=== PATIENT | female | born 1945 | race Caucasian/White ===

== ENCOUNTER → 2019-09-03 15:13 | Outpatient (BNVA) | payer MEDICARE, OTHER, SELFPAY | PROVIDERS: Family Provider Family Medicine; PCP Family Medicine; Visit Provider Nurse Practitioner Family | DX: R30.0 Dysuria (principal); R53.83 Other fatigue; D50.9 Iron deficiency anemia, unspecified; E03.9 Hypothyroidism, unspecified; R23.1 Pallor; E55.9 Vitamin D deficiency, unspecified; K59.00 Constipation, unspecified; M89.9 Disorder of bone, unspecified; R53.82 Chronic fatigue, unspecified; D64.9 Anemia, unspecified | CPT/HCPCS: 74018; 80053; 81000; 82306; 82728; 83550; 84439; 84443; 85025 ==

== ENCOUNTER 2019-09-19 09:44 | Outpatient (CLI) | payer MEDICARE, OTHER, SELFPAY ==
--- NOTE | 2019-09-19 10:00 | CT_ITS ---
WS: [id number] CT LUMBAR SPINE TECHNIQUE: Noncontrast CT of the lumbar spine with coronal and sagittal reformatted images. CLINICAL INFORMATION: lytic lesion COMPARISON: Radiograph September 03, 2019 DLP: 1949.[address] scans at [facility] use at least one of these dose optimization techniques: automat ed exposure control; mA and/or kV adjustment per patient size (includes targeted exams where dose is matched to clinical indication); or iterative reconstruction. FINDINGS: Lumbar scoliosis convex right. No acute compression fractures. Grade 1 anterolisthesis L4 on L5. This measures approximately 2.75 mm. Disc space narrowing worse L5-S1 with vacuum disc phenomenon. Suspected lytic lesion seen on the prior radiograph is not seen on the CT and was likely due projecti onal. No lytic lesions. Partially visualized right adrenal nodule likely adenoma. This measures appro ximately 2.1 cm but incompletely visualized. L1-L2: Mild disc bulging and osteophytic ridging. Slight effacement of ventral thecal sac. Mild centr al canal stenosis. Mild bilateral foraminal narrowing. Moderate facet arthropathy. L2-L3: Slight retrolisthesis L2 on L3. Disc osteophyte complex with moderate to severe central canal stenosis with facet arthropathy and ligament flavum hypertrophy. Impingement subarticular recess bila terally. Advanced facet arthropathy. Moderate left and mild right foraminal narrowing. L3-L4: Disc osteophyte complex with endplate ridging. Moderate facet arthropathy ligament flavum hype rtrophy. Moderate to severe central canal stenosis. Advanced facet arthropathy. Moderate left greater than right foraminal narrowing. L4-L5: Disc osteophyte complexes with endplate ridging. Advanced facet arthropathy. Ligament flavum h ypertrophy. Moderate to severe central canal stenosis. Slight anterolisthesis. Mild bilateral foramin al narrowing. L5-S1: Small disc osteophyte protrusion with osteophytic ridging. Impingement on the left S1 nerve ro ot. Mild central canal stenosis. Mild right and no significant left foraminal narrowing. Shotty retroperitoneal lymph nodes. Enlarged iliac chain and pelvic lymph nodes right greater than le ft the largest measuring 12 mm. These are nonspecific and malignancy is not excluded. Recommend CT ab domen pelvis for further evaluation. Partially visualized sigmoid diverticulosis. Prior hysterectomy. CT/CT lumbar spine wo con* [id number] IMPRESSION: 1. Partially visualized large right greater than left iliac chain and pelvic l ymph nodes the largest measuring 12 mm. These are nonspecific and recommend CT abdomen pelvis for further evaluation. Malignancy is not excluded. 2. No visualized lytic lesions in the lumbar spine corresponding to the radiog raphic findings. 3. Moderate to severe central canal stenosis L2-L3, L3-L4 and L4-L5 described above. 4. Multilevel bony foraminal narrowing described above. 5. Advanced facet arthropathy L4-5. 6. Partially visualized sigmoid diverticulosis. Some induration partially seen in the pelvic mesenteric fat. 7. Partially visualized right adrenal nodule likely adenoma described above.
== END 2019-09-19 09:45 | disposition home or self-care (01) ==
LOC: RADWPI 09:48
PROVIDERS: Family Provider Family Medicine; PCP Family Medicine; Visit Provider Nurse Practitioner Family
DX: M89.9 Disorder of bone, unspecified (principal); M48.061 Spinal stenosis, lumbar region without neurogenic claudication; M47.896 Other spondylosis, lumbar region; M51.36 Other intervertebral disc degeneration, lumbar region; K57.30 Diverticulosis of large intestine without perforation or abscess without bleeding; R59.0 Localized enlarged lymph nodes
CPT/HCPCS: 72131

== ENCOUNTER 2019-09-27 11:32 | Emergency (ER) | payer MEDICARE, OTHER, SELFPAY ==
[2019-09-27 11:50] VITALS: BP 135/72; PULSE 63; RESP 16; TEMP 36.7; O2SAT 98; BMI 27.3
--- NOTE | 2019-09-27 12:03 | CT_ITS ---
WS: [id number] CT ABDOMEN PELVIS TECHNIQUE: Contrast-enhanced CT of the abdomen and pelvis with coronal and sagittal reformatted image s. CLINICAL INFORMATION: abd pain COMPARISON: None. DLP: 1115.[address] scans at [facility] use at least one of these dose optimization techniques: automat ed exposure control; mA and/or kV adjustment per patient size (includes targeted exams where dose is matched to clinical indication); or iterative reconstruction. FINDINGS: Marked hepatomegaly with diffuse fatty infiltration. Liver measures 20 cm craniocaudal. Portal vein a nd splenic vein are patent. Normal visualized pancreas. Cholecystectomy. Normal portal vein and splen ic vein. Small bilateral pleural effusions. Cardiomegaly. Small pericardial effusion. Enhancing right adrenal nodule nonspecific measuring 2.5 CM. Left adrenal gland is normal. Normal renal parenchymal enhancement. No hydronephrosis. Small amount of perisplenic and perihepatic ascites. Fatty atrophy of the pancreas. Normal caliber abdominal aorta. Aortic calcification. Right NISREEN degrades images in the pelvis. Fluid collection partially visualized along the iliopsoas bu rsa in the right anterior thigh consistent with iliopsoas bursitis. Enhancing iliopsoas bursa measure s 6.5 x 3.2 cm Prominent lymph nodes along the right pelvic sidewall the largest measuring 14 mm. 13 mm right iliac chain lymph node. Prominent deep right inguinal lymph nodes the largest measuring 17 mm. Shotty retro peritoneal and periaortic lymph nodes. These are nonspecific but may be reactive. Malignancy not enti rely excluded. Small amount of ascites in the pelvis. Mild diffuse bladder wall thickening. Notified Renan Harmon DO at 09/27/2019 3:[address]/CT abdomen pelvis w con* [id number] IMPRESSION: 1. Marked cardiomegaly with dense diffuse fatty infiltration of the liver. Rec ommend correlation with liver function tests. 2. Mild perihepatic and perisplenic ascites with mild ascites in the pelvis an d mesenteric edema. 3. Small bilateral pleural effusions. Cardiomegaly with small pericardial effu nathalie. 4. A few slightly enlarged right iliac, right pelvic sidewall, and right deep inguinal lymph nodes. These are nonspecific and may be reactive but malignancy is not entirely excluded. Recommend interval follow-up. 5. Shotty retroperitoneal and periaortic lymph nodes. 6. 2.5 cm enhancing right adrenal nodule nonspecific may represent fat poor ad enoma. This can be further evaluated with CT adrenal protocol on an elective ba sis. 7. Right NISREEN with peripheral enhancing partially visualized iliopsoas bursitis .
--- NOTE | 2019-09-27 12:04 | ED_ITS ---
HPI - General Adult General: Chief complaint: General Medical Stated complaint: LOWER BACK PAIN Time Seen by Provider: 09/27/19 11:56 History of Present Illness: HPI narrative: Patient complains of abdominal pain, low back pain, bilateral hip pain. No known injury. She reports that she had a CAT scan of her lumbar spine earlier this week. Onset (ago): year(s) Location: back, abdomen, pelvis and lower extremity Radiation: extremity Severity: severe Pain Consistency: constant Relieving factors: none Exacerbating factors: movement Review of Systems General: Reports: 10 or more systems reviewed and unremarkable except in HPI and below Musc: Reports: back pain and extremity pain PFSH ED PFSH: Medical History CAD (coronary artery disease) Depression Enrolled in chronic care management GERD (gastroesophageal reflux disease) Hypothyroid Renal insufficiency Surgical History History of section History of cholecystectomy History of discectomy History of heart artery stent History of heart surgery History of hemorrhoidectomy History of hip replacement total R History of hysterectomy Family History Other Cancer Social History Smoking and tobacco status: never smoked Physical Exam Const: COMMON NORMALS: patient oriented x3 HENMT: COMMON NORMALS: normocephalic HEAD & SCALP: normocephalic Neck/C-Spine: COMMON NORMALS: full ROM, no lymphadenopathy, no meningeal signs and no JVD Resp: COMMON NORMALS: normal respiratory effort, No retractions, No use of accessory muscles and clear to auscultation bilaterally AUSCULTATION: clear to auscultation bilaterally Cardio: COMMON NORMALS: no JVD, regular rate and regular rhythm RATE: regular rate RHYTHM: regular rhythm GI: COMMON NORMALS: Soft to palpation INSPECTION: Yes normal to inspection AUSCULTATION: Yes normoactive bowel sounds PALPATION: Yes Soft to palpation and Yes Tenderness to palpation present (GI) Extremity: COMMON NORMALS: normal to inspection, full ROM and capillary refill normal Neuro: COMMON NORMALS: patient oriented x3, no focal motor deficits and no sensory deficits noted MENINGEAL SIGNS: Yes no meningeal signs Skin: COMMON NORMALS: no rashes or lesions noted, turgor normal, no jaundice, no petechiae and no mottling GENERAL SKIN EXAM: no rashes or lesions noted and turgor normal Course Vital Signs: Vital signs: Vital Signs Temperature 98.0 F 09/27/19 11:50 Pulse Rate 63 09/27/19 11:50 Respiratory Rate 16 09/27/19 11:50 Blood Pressure 135/72 09/27/19 11:50 Pulse Oximetry 98 09/27/19 11:50 Discharge Plan Discharge Prescriptions: No Action nystatin 100,000 unit/mL suspension 6 ml PO QID 7 Days Qty: 168 RF: 1 cetirizine 10 mg capsule 10 mg PO DAILY RF: 0 metoprolol succinate 100 mg tablet extended release 24 hr 100 mg PO DAILY RF: 0 potassium chloride [Klor-Con M20] 20 mEq tablet,ER particles/crystals 20 meq PO DAILY RF: 0 furosemide [Lasix] 40 mg tablet 40 mg PO QAM PRN (Reason: edema) RF: 0 omeprazole 20 mg capsule,delayed release(DR/EC) 20 mg PO DAILY RF: 0 calcium carbonate-vitamin D3 PO DAILY RF: 0 nitroglycerin 0.4 mg tablet, sublingual 0.4 mg SUBLINGUAL Q5M PRNRF: 0 hydralazine 25 mg tablet 25 mg PO TID RF: 0 acetaminophen [Tylenol] 325 mg tablet 325 mg PO ONCE PRNRF: 0 clopidogrel 75 mg tablet 75 mg PO DAILY RF: 0 aspirin [Adult Aspirin Regimen] 81 mg tablet,delayed release (DR/EC) 81 mg PO DAILY RF: 0 cholecalciferol (vitamin D3) PO DAILY RF: 0 ascorbate calcium (vitamin C) 500 mg tablet 500 mg PO DAILY RF: 0 ferrous sulfate 325 mg (65 mg iron) tablet 325 mg PO DAILY RF: 0 levothyroxine 25 mcg tablet 25 mcg PO DAILY RF: 0 duloxetine 60 mg capsule,delayed release(DR/EC) 60 mg PO DAILY Qty: 30 RF: 3 Coding Level of Care Code ED [employer] Juan Jose
[2019-09-27] MEDS: sodium chloride 0.9% 500 ML IV (13:01)
[2019-09-27 13:09] LABS: Basophils % 0.5 %; Eosinophils # 0.2 10^3/uL (0.0-0.8); Eosinophils % 2.9 %; Hematocrit 32.5 % (37.0-47.0); Hemoglobin 9.6 g/dL (11.5-15.3); Lymphocytes # 1.8 10^3/uL (0.8-4.8); Mean Corpuscular HGB Conc 29.5 g/dL (30.0-36.0); Mean Corpuscular Hemoglobin 28.3 pg (28.0-34.0); Mean Corpuscular Volume 95.9 fL (81-99); Mean Platelet Volume 8.8 fL (7.4-10.4); Monocytes # 0.9 10^3/uL (0.2-0.9); Monocytes % 10.9 %; Neutrophils # 5.2 10^3/uL (1.8-7.7); Neutrophils % 63.2 %; Nucleated Red Blood Cells % 0 %; Platelet Count 390 10^3/cmm (130-400); Red Blood Count 3.39 10^6/uL (4.1-5.3); Red Cell Distribution Width 21.7 % (12.1-15.1); White Blood Count 8.2 10^3/uL (4.0-10.0)
--- NOTE | 2019-09-27 13:12 | PC.NURSE ---
during pt assessment, pt states she is very anxious and would is requesting something for nerves Per pt's home meds, Dr Castro rx duloxetine 60mg po
[2019-09-27 13:18] LABS: Add Urine Microscopic? YES; Bilirubin Urine Neg (NEGATIVE); Blood Urine Neg (Negative); Glucose Urine UA Norm (Normal); Ketones Urine Negative (Negative); Leukocyte Esterase Urine Negative (Negative); Nitrate Urine Negative (Negative); Protein Urine 1+ (Negative); Urine Appearance Clear (CLEAR); Urine Color Yellow (Yellow); Urobilinogen Urine 1 mg/dL (Negative)
[2019-09-27 13:24] LABS: Alanine Aminotransferase 9 U/L (0-33); Albumin Level 3.2 g/dL (3.5-5.2); Alkaline Phosphatase 228 IU/L (35-105); Anion Gap 15.8 (5-19); Aspartate Amino Transferase 16 U/L (0-32); Blood Urea Nitrogen 17 mg/dL (8-23); Carbon Dioxide 25 mmol/L (22-29); Chloride 101 mmol/L (98-107); Globulin 4.1 g/dL (1.3-4.6); Glucose 93 mg/dL (65-115); Lipase 5 U/L (13-60); Osmolality Calculated 282 mOsm/kg (285-295); Potassium 3.8 mmol/L (3.5-5.1); Sodium 138 mmol/L (136-145); Total Bilirubin 0.7 mg/dL (0.15-1.2); Total Protein 7.3 g/dL (6.6-8.7)
[2019-09-27 13:25] LABS: Lactate (Lactic Acid level) 1.4 mmol/L (0.5-2.2)
[2019-09-27] MEDS: duloxetine 60 mg Capsule PO (13:27)
[2019-09-27 13:28] LABS: Add Urine Culture? No; Bacteria Urine 1+; Hyaline Casts Urine 0-4; WBC Urine 0-4 /hpf (0-5)
--- NOTE | 2019-09-27 14:36 | PC.NURSE ---
Luis spouse: [phone]
--- NOTE | 2019-09-27 14:38 | PC.NURSE ---
pt spouse informed of pt update. cell ph# obtained
[2019-09-27] MEDS: iodixanol 320 mg/mL 100mL Btl IV (15:00)
[2019-09-27 17:14] VITALS: BP 177/102; PULSE 96; RESP 20; O2SAT 97
== END 2019-09-27 17:49 | disposition home or self-care (01) ==
PROVIDERS: Emergency Provider Family Medicine; Family Provider Family Medicine; PCP Family Medicine
DX: M54.5 Low back pain (principal); Z79.02 Long term (current) use of antithrombotics/antiplatelets; Z79.82 Long term (current) use of aspirin; I25.10 Atherosclerotic heart disease of native coronary artery without angina pectoris; K21.9 Gastro-esophageal reflux disease without esophagitis; Z96.641 Presence of right artificial hip joint
CPT/HCPCS: 12345; 74177; 80053; 81001; 83605; 83690; 85025; 96360; 99282; 99283; A9270; J7040; Q9967

== ENCOUNTER 2019-10-24 | Outpatient (CLI) | payer MEDICARE, OTHER, SELFPAY | END 2019-10-24 23:00 | disposition home or self-care (01) | LOC: RADWPI 01-06 10:36 | PROVIDERS: PCP Family Medicine; Visit Provider Licensed Practical Nurse | DX: M51.17 Intervertebral disc disorders with radiculopathy, lumbosacral region (principal) | CPT/HCPCS: A9579 ==

== ENCOUNTER 2019-11-06 06:00 | Outpatient (RCR) | payer MEDICARE, OTHER, SELFPAY | END 2019-12-06 23:59 | disposition home or self-care (01) | LOC: GPT 06:00 | PROVIDERS: PCP Family Medicine; Referring Provider Nurse Practitioner Family; Visit Provider Nurse Practitioner Family | DX: M62.81 Muscle weakness (generalized) (principal) | CPT/HCPCS: 97110; 97112; 97116; 97161; 97530 ==

== ENCOUNTER 2019-12-07 06:00 | Outpatient (RCR) | payer MEDICARE, OTHER, SELFPAY | END 2020-01-06 23:59 | disposition home or self-care (01) | LOC: GPT 06:00 | PROVIDERS: PCP Family Medicine; Referring Provider Nurse Practitioner Family; Visit Provider Nurse Practitioner Family | DX: M62.81 Muscle weakness (generalized) (principal) | CPT/HCPCS: 97110; 97112; 97116; 97164; 97530 ==

== ENCOUNTER 2019-12-10 14:43 | Outpatient (CLI) | payer MEDICARE, OTHER, SELFPAY ==
--- NOTE | 2019-12-10 14:52 | XR_ITS ---
WS: [id number] FEMUR RIGHT TECHNIQUE: 2 views of the right femur CLINICAL INFORMATION: Mass COMPARISON: None. FINDINGS: Postoperative changes right NISREEN. No evidence of hardware loosening. Osteopenia. XR/XR femur RT min 2V* [id number] IMPRESSION: Postoperative changes right NISREEN. No evidence of hardware loosening.
== END 2019-12-10 14:44 | disposition home or self-care (01) ==
LOC: RADWPI 14:49
PROVIDERS: Family Provider Family Medicine; PCP Family Medicine; Visit Provider Licensed Practical Nurse
DX: R22.41 Localized swelling, mass and lump, right lower limb (principal); Z96.641 Presence of right artificial hip joint
CPT/HCPCS: 73552

== ENCOUNTER → 2019-12-12 13:22 | Outpatient (BNVA) | payer MEDICARE, OTHER, SELFPAY | PROVIDERS: Family Provider Family Medicine; PCP Family Medicine; Visit Provider Licensed Practical Nurse | DX: N28.9 Disorder of kidney and ureter, unspecified (principal) | CPT/HCPCS: 80053 ==

== ENCOUNTER → 2019-12-19 11:01 | Outpatient (BNVA) | payer MEDICARE, OTHER, SELFPAY | PROVIDERS: PCP Family Medicine; Visit Provider Licensed Practical Nurse | DX: M48.062 Spinal stenosis, lumbar region with neurogenic claudication (principal); D50.9 Iron deficiency anemia, unspecified; M51.17 Intervertebral disc disorders with radiculopathy, lumbosacral region; R22.41 Localized swelling, mass and lump, right lower limb; G60.8 Other hereditary and idiopathic neuropathies | CPT/HCPCS: 99214 ==

== ENCOUNTER 2020-01-07 06:00 | Outpatient (RCR) | payer MEDICARE, OTHER, SELFPAY | END 2020-02-05 23:59 | disposition home or self-care (01) | LOC: GPT 06:00 | PROVIDERS: PCP Family Medicine; Referring Provider Nurse Practitioner Family; Visit Provider Nurse Practitioner Family | DX: M62.81 Muscle weakness (generalized) (principal) | CPT/HCPCS: 97110; 97112; 97116; 97164; 97530 ==

== ENCOUNTER 2020-01-07 07:52 | Outpatient (CLI) | payer MEDICARE, OTHER, SELFPAY ==
--- NOTE | 2020-01-07 07:15 | US_ITS ---
WS: [id number] ULTRASOUND SOFT TISSUES RIGHT thigh. HISTORY: Painful right thigh mass COMPARISON: CT 09/27/2019 TECHNIQUE: 2-D and color Doppler imaging is submitted. There is a large complex nonvascular fluid collection in the proximal RIGHT thigh at the area of pain . Thick wall collection with mobile debris and low-level echoes centrally. Collection has been presen t for multiple years. The collection measures 7.1 x 5.3 x 6.0 cm. No increased vascularity. US/US soft tissue/extremity [id number] IMPRESSION: Large thick-walled complex fluid collection without vascularity corresponds to the area of pain and palpable mass proximal RIGHT thigh. Prior CT from 0 demonstrated a complex fluid collection around the hip. There are multiple bu rsal fluid collections at the hip and this is probably bursal fluid distention which is chronic and could potentially be increasing in size. Less likely mariluz desirae due to its long-standing presence.
== END 2020-01-07 07:53 | disposition home or self-care (01) ==
LOC: RAD 07:57
PROVIDERS: PCP Family Medicine; Visit Provider Licensed Practical Nurse
DX: R22.41 Localized swelling, mass and lump, right lower limb (principal)
CPT/HCPCS: 76882

== ENCOUNTER → 2020-01-16 13:44 | Outpatient (BNVA) | payer MEDICARE, OTHER, SELFPAY | PROVIDERS: PCP Family Medicine; Visit Provider Licensed Practical Nurse | DX: M48.062 Spinal stenosis, lumbar region with neurogenic claudication (principal); M51.17 Intervertebral disc disorders with radiculopathy, lumbosacral region; R22.41 Localized swelling, mass and lump, right lower limb; G60.8 Other hereditary and idiopathic neuropathies; D50.9 Iron deficiency anemia, unspecified | CPT/HCPCS: 99214 ==

== ENCOUNTER 2020-02-06 06:00 | Outpatient (RCR) | payer MEDICARE, OTHER, SELFPAY | END 2020-03-07 23:59 | disposition home or self-care (01) | LOC: GPT 06:00 | PROVIDERS: PCP Family Medicine; Referring Provider Nurse Practitioner Family; Visit Provider Nurse Practitioner Family | DX: M62.81 Muscle weakness (generalized) (principal); D50.9 Iron deficiency anemia, unspecified | CPT/HCPCS: 83550; 85025; 97110; 97116; 97530 ==

== ENCOUNTER → 2020-02-06 13:31 | Outpatient (BNVA) | payer MEDICARE, OTHER, SELFPAY | PROVIDERS: PCP Family Medicine; Visit Provider Licensed Practical Nurse | DX: D50.9 Iron deficiency anemia, unspecified (principal) | CPT/HCPCS: 83550; 85025 ==

== ENCOUNTER → 2020-02-18 10:58 | Outpatient (BNVA) | payer MEDICARE, OTHER, SELFPAY | PROVIDERS: PCP Family Medicine; Visit Provider Nurse Practitioner Family | DX: J02.9 Acute pharyngitis, unspecified (principal) | CPT/HCPCS: 87071; 87880 ==

== ENCOUNTER 2020-02-22 18:54 | Inpatient (IN) | payer MEDICARE, OTHER, SELFPAY ==
[2020-02-22] VITALS (17 sets, daily range): BP systolic 96–150; BP diastolic 61–78; PULSE 64–78; RESP 16–27; TEMP 36.7; O2SAT 73–100; BMI 26.6
--- NOTE | 2020-02-22 19:28 | XRR_ITS ---
PROCEDURE INFORMATION: Exam: XR Chest, 1 View Exam date and time: 02/22/2020 7:30 PM Age: 74 years old Clinical indication: Patient HX: C/O cough, weakness n/v/d TECHNIQUE: Imaging protocol: XR of the chest Views: 1 view. COMPARISON: No relevant prior studies available. FINDINGS: Lungs: Subtle patchy ground-glass interstitial lung disease right upper lobe which could reflect right upper lobe pneumonitis. Pleural space: Unremarkable. No pleural effusion. No pneumothorax. Heart/Mediastinum: Marked cardiomegaly. Bones/joints: High riding right shoulder with advanced primary osteoarthritis. Other findings: Heavy body habitus. XR/XR chest 1V portable [id number] IMPRESSION: 1. Subtle patchy ground-glass interstitial lung disease right upper lobe which could reflect right upper lobe pneumonitis. 2. Marked cardiomegaly.
[2020-02-22 19:47] LABS: Basophils % 0.7 %; Eosinophils # 0.1 10^3/uL (0.0-0.8); Eosinophils % 1.5 %; Hematocrit 37.8 % (37.0-47.0); Hemoglobin 11.5 g/dL (11.5-15.3); Lymphocytes # 1.6 10^3/uL (0.8-4.8); Lymphocytes % 26.7 %; Mean Corpuscular HGB Conc 30.4 g/dL (30.0-36.0); Mean Corpuscular Hemoglobin 28.2 pg (28.0-34.0); Mean Corpuscular Volume 92.6 fL (81-99); Mean Platelet Volume 10.5 fL (7.4-10.4); Monocytes # 0.2 10^3/uL (0.2-0.9); Monocytes % 3.9 %; Neutrophils # 3.99 10^3/uL (1.8-7.7); Neutrophils % 66.9 %; Nucleated Red Blood Cells % 0.3 %; Platelet Count 112 10^3/cmm (130-400); Red Blood Count 4.08 10^6/uL (4.1-5.3); Red Cell Distribution Width 19.4 % (12.1-15.1)
[2020-02-22] MEDS: sodium chloride 0.9% 1,000 ML 999 ML IV (19:51)
[2020-02-22 20:08] LABS: Lactate (Lactic Acid level) 1.7 mmol/L (0.5-2.2)
[2020-02-22 20:13] LABS: Add Urine Microscopic? YES; Bilirubin Urine 1+ (Negative); Blood Urine Neg (Negative); Glucose Urine UA Norm (Normal); Ketones Urine 1+ (Negative); Leukocyte Esterase Urine 2+ (Negative); Nitrate Urine Negative (Negative); Protein Urine 1+ (Negative); Specific Gravity, Urine 1.015 (1.005-1.030); Urine Appearance Clear (CLEAR); Urine Color Yellow (Yellow); Urobilinogen Urine 8 mg/dL (Negative); pH Urine 5 (5-7)
[2020-02-22 20:18] LABS: Procalcitonin 0.51 ng/mL (0-0.5)
[2020-02-22 20:29] LABS: Alanine Aminotransferase 9 U/L (0-33); Albumin Level 2.5 g/dL (3.5-5.2); Alkaline Phosphatase 452 IU/L (35-105); Anion Gap 18.9 (5-19); Aspartate Amino Transferase 32 U/L (0-32); Blood Urea Nitrogen 24 mg/dL (8-23); C Reactive Protein 139.2 mg/L (0.0-4.9); Carbon Dioxide 14 mmol/L (22-29); Chloride 106 mmol/L (98-107); Globulin 4.1 g/dL (1.3-4.6); Glucose 64 mg/dL (65-115); Lipase 12 U/L (13-60); Osmolality Calculated 282 mOsm/kg (285-295); Potassium 3.9 mmol/L (3.5-5.1); Sodium 135 mmol/L (136-145); Total Bilirubin 1.6 mg/dL (0.15-1.2); Total Protein 6.6 g/dL (6.6-8.7)
[2020-02-22 20:40] LABS: Add Urine Culture? Yes; Bacteria Urine 2+ /hpf; RBC Urine 0-4 /hpf (0-2); Squamous Epithelial Cell Urine 0-4 /hpf (0-5)
--- NOTE | 2020-02-22 21:09 | ED_ITS ---
HPI - Nausea/Vomiting/Diarrhea General: Chief complaint: Nausea/Vomiting/Diarrhea Stated complaint: D/N/V, COUGH Time Seen by Provider: 02/22/20 19:28 History of Present Illness: HPI Narrative: 74-year-old female presents with multiple complaints. This includes cough, shortness of breath, diarrhea. She denies any fever. She says that she has been sick for a little over a week, but also on and off for 3 years. MD elicited complaint: nausea, vomiting and diarrhea Onset (ago): week(s) (1) Associated nausea: Yes Associated abdominal pain: Yes Location of pain: Diffuse Radiation: diffuse Pain consistency: intermittent Quality: cramping Exacerbating factors: none Relieving factors: none Associated symtoms: Reports chest pain and nausea; Denies anxiety, change in vision, dizziness, dysuria, headache(s) or palpitations Review of Systems Const: Denies: fever(s) or chills Eyes: Denies: change in vision ENMT: Reports: odynophagia; Denies: swelling of lips/tongue, bleeding gums, post nasal drip or sinus pain Card: Reports: chest pain, swelling of feet/ankles and dyspnea on exertion; Denies: palpitations, irregular heart rhythm or orthopnea Resp: Denies: dyspnea, productive cough, non-productive cough or wheezing GI: Reports: nausea, vomiting and diarrhea : Denies: dysuria or hematuria Musc: Denies: neck pain or back pain Skin/Breast: Denies: rash, pruritus or erythema Neuro: Denies: headache(s), dizziness or vertigo Psych: Denies: anxiety PFSH ED PFSH: Medical History CAD (coronary artery disease) Depression Enrolled in chronic care management GERD (gastroesophageal reflux disease) Hypothyroid Intervertebral disc disorder with radiculopathy of lumbosacral region Iron deficiency anemia Dr. Nichole Martinez Oncologist [facility]. HX of iron infusion, she reports cardiac arrest during infusion. HX Bone Bx. Lumbar stenosis with neurogenic claudication Mass of right thigh Peripheral sensory-motor axonal polyneuropathy Renal insufficiency Surgical History History of section History of cholecystectomy History of discectomy History of heart artery stent History of heart surgery History of hemorrhoidectomy History of hip replacement total R History of hysterectomy Family History Mother Cancer Social History Smoking and tobacco status: never smoked Alcohol intake: never Household members: spouse and family Marital status: Current occupational status: retired History of recent travel: No Physical Exam Const: GENERAL APPEARANCE: disheveled, ill appearing and frail appearing ORIENTATION/CONSCIOUSNESS: Yes oriented to person and Yes oriented to place; not oriented to time HENMT: COMMON NORMALS: normocephalic, external ears normal and Normal external nose present HEAD & SCALP: normocephalic; no scalp tenderness FACE & SINUS: normal facial exam NOSE: Normal external nose present and No nasal discharge present EXTERNAL EAR: Yes external ears normal Eye: COMMON NORMALS: Equal, round and reactive pupils present, EOMs intact bilaterally and conjunctivae normal EYELID: eyelids normal CONJUNCTIVA: Yes conjunctivae normal PUPIL: Yes Equal, round and reactive pupils present Neck/C-Spine: GENERAL: No tracheal deviation Chest: COMMONS NORMALS: normal inspection of the chest CHEST: No tenderness Resp: COMMON NORMALS: clear to auscultation bilaterally EFFORT & INSPECTION: No tachypneic, No respiratory distress, No retractions, No uses acc essory muscles and No tracheal deviation AUSCULTATION: clear to auscultation bilaterally, rhonchi, no wheezes and diminished lung sounds Cardio: COMMON NORMALS: regular rate and regular rhythm RATE: regular rate RHYTHM: regular rhythm HEART SOUNDS: no murmurs PERIPHERAL PULSES: radial pulses present GI: INSPECTION: No abdominal distension AUSCULTATION: No Hyperactive bowel sounds present and No Hypoactive bowel sounds present PALPATION: No Guarding due to palpation present (GI) and No Rigid due to palpation PERCUSSION: no dullness to percussion and no tympanic to percussion : COMMON NORMALS: Yes no CVA tenderness BLADDER/KIDNEY EXAM: Yes no CVA tenderness Back/Pelvis: COMMON NORMALS: no CVA tenderness Neuro: SENSORIUM/ORIENTATION: Yes oriented to person, Yes oriented to place and No oriented to time Psych: COMMON NORMALS: mental status grossly normal Skin: COMMON NORMALS: no rashes or lesions noted GENERAL SKIN EXAM: no rashes or lesions noted Course Vital Signs: Vital signs: Vital Signs Temperature 98.2 F 02/23/20 02:22 Pulse Rate 70 02/23/20 02:22 Respiratory Rate 20 H 02/23/20 02:22 Blood Pressure 120/72 02/23/20 02:22 Pulse Oximetry 96 02/23/20 02:22 MDM - Nausea/Vomiting/Diarrhea MDM Narrative: Medical decision making narrative: 74-year-old female presents with shortness of breath, diarrhea, and vomiting. She has significant electrolyte abnormalities including a bicarbonate level of 14. Her creatinine is 1.4. She has right upper lobe infiltrates. She is COVID-19 positive. She has a significantly elevated BNP. She has a chronic seroma/bursal fluid collection to the right hip. It is not appear infected. This is a chronic problem. Lab Data: Labs: Lab Results 02/22/20 02/22/20 02/22/20 Range/Units 19:35 19:35 19:35 WBC 6.0 (4.0-10.0) 10^3/ uL RBC 4.08 L (4.1-5.3) 10^6/u L Hgb 11.5 (11.5-15.3) g/dL Hct 37.8 (37.0-47.0) % MCV 92.6 (81-99) fL MCH 28.2 (28.0-34.0) pg MCHC 30.4 (30.0-36.0) g/dL RDW 19.4 H (12.1-15.1) % Plt Count 112 L (130-400) 10^3/c mm MPV 10.5 H (7.4-10.4) fL Neut % (Auto) 66.9 % Lymph % (Auto) 26.7 % [place] % (Auto) 3.9 % Eos % (Auto) 1.5 % Baso % (Auto) 0.7 % Neut # (Auto) 3.99 (1.8-7.7) 10^3/u L Lymph # (Auto) 1.6 (0.8-4.8) 10^3/u L [place] # (Auto) 0.2 (0.2-0.9) 10^3/u L Eos # (Auto) 0.1 (0.0-0.8) 10^3/u L Baso # (Auto) 0.0 (0.0-0.1) 10^3/u L Nucleated RBC % (a uto) 0.3 % Nucleated RBCs # 0.0 /100WBC Specimen Type Sample Site ABG pH (7.35-7.45) ABG pCO2 (35-45) mmHg ABG pO2 (80.0-100.0) mmH g ABG HCO3 (22-26) mmol/L ABG Base Excess (-2.0-2.0) mmol/ L Artem Test Hematocrit (37-47) % O2 Delivery Device O2 Liters/Min % Petroleum Production Engineer ID Sodium 135 L (136-145) mmol/L Potassium 3.9 (3.5-5.1) mmol/L Chloride 106 (98-107) mmol/L Carbon Dioxide 14 L (22-29) mmol/L Anion Gap 18.9 (5-19) BUN 24 H (8-23) mg/dL Creatinine 1.4 H (0.5-0.9) mg/dL GFR Calculation Not Reportable Glucose 64 L (65-115) mg/dL Calculated Osmolal ity 282 L (285-295) mOsm/k g Lactate 1.7 (0.5-2.2) mmol/L Calcium 8.0 L (8.5-10.5) mg/dL Total Bilirubin 1.6 H (0.15-1.2) mg/dL AST 32 (0-32) U/L ALT 9 (0-33) U/L Alkaline Phosphata se 452 H (35-105) IU/L C-Reactive Protein 139.2 H (0.0-4.9) mg/L NT-Pro-B Natriuret Pep (0-125) pg/mL Total Protein 6.6 (6.6-8.7) g/dL Albumin 2.5 L (3.5-5.2) g/dL Globulin 4.1 (1.3-4.6) g/dL Lipase 12 L (13-60) U/L Procalcitonin 0.51 H (0-0.5) ng/mL Urine Color (Yellow) Urine Appearance (CLEAR) Urine pH (5-7) Ur Specific Gravit y (1.005-1.030) Urine Protein (Negative) Urine Glucose (UA) (Normal) Urine Ketones (Negative) Urine Blood (Negative) Urine Nitrate (Negative) Urine Bilirubin (Negative) Urine Urobilinogen (Negative) mg/dL Ur Leukocyte Felicita ase (Negative) Urine RBC (0-2) /hpf Urine WBC (0-5) /hpf Ur Squamous Epith Cells (0-5) /hpf Amorphous Sediment Urine Bacteria (NONE) /hpf SARS-CoV-2 Ag (Rap id) (Negative) 02/22/20 02/22/20 02/22/20 Range/Units 19:35 19:50 20:30 WBC (4.0-10.0) 10^3/ uL RBC (4.1-5.3) 10^6/u L Hgb (11.5-15.3) g/dL Hct (37.0-47.0) % MCV (81-99) fL MCH (28.0-34.0) pg MCHC (30.0-36.0) g/dL RDW (12.1-15.1) % Plt Count (130-400) 10^3/c mm MPV (7.4-10.4) fL Neut % (Auto) % Lymph % (Auto) % [place] % (Auto) % Eos % (Auto) % Baso % (Auto) % Neut # (Auto) (1.8-7.7) 10^3/u L Lymph # (Auto) (0.8-4.8) 10^3/u L [place] # (Auto) (0.2-0.9) 10^3/u L Eos # (Auto) (0.0-0.8) 10^3/u L Baso # (Auto) (0.0-0.1) 10^3/u L Nucleated RBC % (a uto) % Nucleated RBCs # /100WBC Specimen Type Sample Site ABG pH (7.35-7.45) ABG pCO2 (35-45) mmHg ABG pO2 (80.0-100.0) mmH g ABG HCO3 (22-26) mmol/L ABG Base Excess (-2.0-2.0) mmol/ L Artem Test Hematocrit (37-47) % O2 Delivery Device O2 Liters/Min % Petroleum Production Engineer ID Sodium (136-145) mmol/L Potassium (3.5-5.1) mmol/L Chloride (98-107) mmol/L Carbon Dioxide (22-29) mmol/L Anion Gap (5-19) BUN (8-23) mg/dL Creatinine (0.5-0.9) mg/dL GFR Calculation Glucose (65-115) mg/dL Calculated Osmolal ity (285-295) mOsm/k g Lactate (0.5-2.2) mmol/L Calcium (8.5-10.5) mg/dL Total Bilirubin (0.15-1.2) mg/dL AST (0-32) U/L ALT (0-33) U/L Alkaline Phosphata se (35-105) IU/L C-Reactive Protein (0.0-4.9) mg/L NT-Pro-B Natriuret Pep 98730 H (0-125) pg/mL Total Protein (6.6-8.7) g/dL Albumin (3.5-5.2) g/dL Globulin (1.3-4.6) g/dL Lipase (13-60) U/L Procalcitonin (0-0.5) ng/mL Urine Color Yellow (Yellow) Urine Appearance Clear (CLEAR) Urine pH 5 (5-7) Ur Specific Gravit y 1.015 (1.005-1.030) Urine Protein 1+ H (Negative) Urine Glucose (UA) Norm (Normal) Urine Ketones 1+ H (Negative) Urine Blood Neg (Negative) Urine Nitrate Negative (Negative) Urine Bilirubin 1+ H (Negative) Urine Urobilinogen 8 H (Negative) mg/dL Ur Leukocyte Felicita ase 2+ H (Negative) Urine RBC 0-4 H (0-2) /hpf Urine WBC 5-10 H (0-5) /hpf Ur Squamous Epith Cells 0-4 H (0-5) /hpf Amorphous Sediment Not Reportable Urine Bacteria 2+ H (NONE) /hpf SARS-CoV-2 Ag (Rap id) Positive H (Negative) 02/22/20 Range/Units 22:00 WBC (4.0-10.0) 10^3/ uL RBC (4.1-5.3) 10^6/u L Hgb (11.5-15.3) g/dL Hct (37.0-47.0) % MCV (81-99) fL MCH (28.0-34.0) pg MCHC (30.0-36.0) g/dL RDW (12.1-15.1) % Plt Count (130-400) 10^3/c mm MPV (7.4-10.4) fL Neut % (Auto) % Lymph % (Auto) % [place] % (Auto) % Eos % (Auto) % Baso % (Auto) % Neut # (Auto) (1.8-7.7) 10^3/u L Lymph # (Auto) (0.8-4.8) 10^3/u L [place] # (Auto) (0.2-0.9) 10^3/u L Eos # (Auto) (0.0-0.8) 10^3/u L Baso # (Auto) (0.0-0.1) 10^3/u L Nucleated RBC % (a uto) % Nucleated RBCs # /100WBC Specimen Type Arterial Sample Site Radial, left ABG pH 7.31 L (7.35-7.45) ABG pCO2 35.7 (35-45) mmHg ABG pO2 95.2 (80.0-100.0) mmH g ABG HCO3 17.8 L (22-26) mmol/L ABG Base Excess -7.7 L (-2.0-2.0) mmol/ L Artem Test Pos Hematocrit 35.9 L (37-47) % O2 Delivery Device Nc O2 Liters/Min 2.0 % Petroleum Production Engineer ID [email or web address] Sodium (136-145) mmol/L Potassium (3.5-5.1) mmol/L Chloride (98-107) mmol/L Carbon Dioxide (22-29) mmol/L Anion Gap (5-19) BUN (8-23) mg/dL Creatinine (0.5-0.9) mg/dL GFR Calculation Glucose (65-115) mg/dL Calculated Osmolal ity (285-295) mOsm/k g Lactate (0.5-2.2) mmol/L Calcium (8.5-10.5) mg/dL Total Bilirubin (0.15-1.2) mg/dL AST (0-32) U/L ALT (0-33) U/L Alkaline Phosphata se (35-105) IU/L C-Reactive Protein (0.0-4.9) mg/L NT-Pro-B Natriuret Pep (0-125) pg/mL Total Protein (6.6-8.7) g/dL Albumin (3.5-5.2) g/dL Globulin (1.3-4.6) g/dL Lipase (13-60) U/L Procalcitonin (0-0.5) ng/mL Urine Color (Yellow) Urine Appearance (CLEAR) Urine pH (5-7) Ur Specific Gravit y (1.005-1.030) Urine Protein (Negative) Urine Glucose (UA) (Normal) Urine Ketones (Negative) Urine Blood (Negative) Urine Nitrate (Negative) Urine Bilirubin (Negative) Urine Urobilinogen (Negative) mg/dL Ur Leukocyte Felicita ase (Negative) Urine RBC (0-2) /hpf Urine WBC (0-5) /hpf Ur Squamous Epith Cells (0-5) /hpf Amorphous Sediment Urine Bacteria (NONE) /hpf SARS-CoV-2 Ag (Rap id) (Negative) Discharge Plan Discharge Patient Disposition: Admitted As Inpatient Admit Provider: Gutierrez Diaz Clinical Impression: COVID-19 determined by clinical diagnostic criteria, Gastroenteritis Condition: Stable Interventions: ED Discharge Assessment Last Done: 02/23/20 01:39 ED Charges Last Done: 02/23/20 01:39 Discharge Date/Time: 02/23/20 02:08 Coding Level of Care Code ED Polisher Eyeglass Frames for Rc Fwd Exam Comprehensive
[2020-02-22 21:19] LABS: SARS Covid-2 Antigen Positive (Negative)
[2020-02-22 22:06] LABS: ABG PCO2 35.7 mmHg (35-45); ABG PH Result 7.31 (7.35-7.45); Arterial Blood Gas Hematocrit 35.9 % (37-47); Base Excess ABG -7.7 mmol/L (-2.0-2.0); Blood Gas Allen Test Pos; Blood Gas Sample Site Radial, left; Blood Gas Sample Type Arterial; HCO3 ABG 17.8 mmol/L (22-26); Oxygen Device NC; PO2 ABG 95.2 mmHg (80.0-100.0)
[2020-02-22 22:09] LABS: NT Pro B Type Natriuretic Pept 82347 pg/mL (0-125)
--- NOTE | 2020-02-22 23:12 | P.HP_ITS ---
Providers/Chief Complaint Primary Care Provider: Yary Rosenthal NP Chief Complaint: D/N/V, COUGH History of Present Illness Sandra Talley is a 74 year old female who has multiple comorbidities such as coronary disease, GERD, hypothyroidism, renal insufficiency, spinal abscess history, iliopsoas bursitis, deconditioning, presented with chief complaint of diarrhea, generalized weakness and nonproductive cough. Patient is stating that her symptoms started a week ago with diarrhea, she has been having nonproductive cough as well (Patient is stating that every time she goes to bathroom for urination she would experience loose stool, no recent antibiotic use, her shortness of breath has gotten worse, she is endorsing orthopnea and PND). She has not noticed any fever, denying dysuria, had experienced 3 episodes of emesis, denying headache, chest pain. At home she was feeling very weak to maneuver her wheelchair hence decided to come to the hospital for further evaluation. Diagnostics in the ER revealed severe dehydration, dehydration metabolic acidosis, Covid antigen positive, chest x-ray showing right upper lobe pneumonia, vascular congestion, cardiomegaly, she is not septic I have requested C. difficile panel, start Levaquin, she is saturating well on 2 L which is her home regimen, patient is stating that he uses 2 L of oxygen only at night Review of Systems Const: Reports: chills, body aches, change in appetite, change in weight, fatigue and malaise Eyes: Denies: change in vision ENMT: Reports: throat pain Card: Denies: chest pain Resp: Reports: dyspnea and non-productive cough GI: Reports: abdominal pain and diarrhea : Denies: flank pain Musc: Denies: neck pain Skin/Breast: Denies: rash Neuro: Reports: difficulty walking; Denies: headache(s) Psych: Denies: anxiety Endo: Denies: polyuria Markus/Lymph: Denies: easy bruising All/Imm: Denies: urticaria Medications/Allergies Home Medications Medication Instructions Recorded Confirmed Last Taken Type acetaminophen 325 mg tablet 325 mg PO ONCE PRN 05/17/19 02/20/20 Unknown History ascorbate calcium (vitamin C) 500 500 mg PO DAILY tab 05/17/19 02/20/20 Unknown History mg tablet aspirin 81 mg tablet,delayed 81 mg PO DAILY tab 05/17/19 02/20/20 Unknown History release calcium carbonate-vitamin D3 PO DAILY 05/17/19 02/20/20 Unknown History cholecalciferol (vitamin D3) PO DAILY 05/17/19 02/20/20 Unknown History clopidogrel 75 mg tablet 75 mg PO DAILY tab 05/17/19 02/20/20 Unknown History ferrous sulfate 325 mg (65 mg 325 mg PO DAILY tab 05/17/19 02/20/20 Unknown History iron) tablet furosemide 40 mg tablet 40 mg PO QAM PRN 05/17/19 02/20/20 Unknown History nitroglycerin 0.4 mg sublingual 0.4 mg SUBLINGUAL Q5M PRN 05/17/19 02/20/20 Unknown History tablet potassium chloride 20 mEq 20 meq PO DAILY tab 05/17/19 02/20/20 Unknown History tablet,extended release(part/cryst) levothyroxine 25 mcg tablet 25 mcg PO DAILY 08/22/19 02/20/20 Unknown History tramadol 25 mg PO Q6H PRN #20 tab 09/27/19 02/20/20 Unknown Rx quetiapine 25 mg tablet 25 mg PO .hs #30 tab 11/11/19 02/20/20 Unknown Rx triamcinolone acetonide 0.025 % 1 applic TOPICAL TID #15 gm 11/11/19 02/20/20 Unknown Rx topical ointment metoprolol succinate 100 mg 100 mg PO DAILY #30 tab 11/25/19 02/20/20 Unknown Rx tablet,extended release 24 hr hydralazine 25 mg tablet 25 mg PO Q6H PRN tab 12/23/19 02/20/20 Unknown History omeprazole 20 mg capsule,delayed 20 mg PO DAILY 12/23/19 02/20/20 Unknown History release vitamin B complex 1 tab PO DAILY 12/23/19 02/20/20 Unknown History cetirizine 10 mg capsule 10 mg PO DAILY #30 cap 02/18/20 02/20/20 Unknown Rx duloxetine 30 mg capsule,delayed 30 mg PO DAILY #30 cap 02/18/20 02/20/20 Unknown Rx release nystatin 100,000 unit/gram topical 1 applic TOPICAL BID #30 gm 02/18/20 02/20/20 Unknown Rx cream ondansetron HCl 4 mg tablet 4 mg PO Q6H PRN #30 tab 02/18/20 02/20/20 Unknown Rx sertraline 25 mg tablet 25 mg PO DAILY #30 tab 02/18/20 02/20/20 Unknown Rx Allergies Allergy/AdvReac Type Severity Reaction Status Date / Time codeine Allergy Unknown Verified 02/18/20 10:50 gabapentin Allergy ADR-Halluci Verified 02/18/20 10:50 nating ibuprofen Allergy Unknown Verified 02/18/20 10:50 lorazepam [From Ativan] Allergy Unknown Verified 02/18/20 10:50 meperidine [From Demerol] Allergy ADR-Halluci Verified 02/18/20 10:50 nating PFSH Acute PFSH: Medical History CAD (coronary artery disease) Depression Enrolled in chronic care management GERD (gastroesophageal reflux disease) Hypothyroid Intervertebral disc disorder with radiculopathy of lumbosacral region Iron deficiency anemia Dr. Nichole Martinez Oncologist [facility]. HX of iron infusion, she reports cardiac arrest during infusion. HX Bone Bx. Lumbar stenosis with neurogenic claudication Mass of right thigh Peripheral sensory-motor axonal polyneuropathy Renal insufficiency Surgical History History of section History of cholecystectomy History of discectomy History of heart artery stent History of heart surgery History of hemorrhoidectomy History of hip replacement total R History of hysterectomy Family History Mother Cancer Social History Smoking and tobacco status: never smoked Alcohol intake: never Household members: spouse and family Marital status: Current occupational status: retired History of recent travel: No Vitals/I&O/Wt Last Vital Signs Temp 98.1 F 02/22/20 19:06 Pulse 69 02/22/20 22:45 Resp 26 H 02/22/20 22:45 BP 150/61 02/22/20 22:45 Pulse Ox 100 02/22/20 22:30 Weight last 48 hrs Weight 77.111 kg Physical Exam Narrative: EXAM NARRATIVE: Frail female currently in distress because of dehydration and abdominal pain When I entered the room she was leaning towards the right lateral side Was able to give me above-mentioned detail Too weak to get up in her bed Saturating 98% on 2 L nasal cannula No acute respiratory distress She has multiple rashes around her lips Abdomen tender on deep palpation in left quadrant area, no signs of peritonitis, bowel sound present, distended, visceral obesity Hearing impairment, No gross neurological deficit Irritable mood Low extremity no edema Clinically looks dry Data : 02/22/20 19:35 02/22/20 19:35 A&P Assessment and plan (1) COVID-19 determined by clinical diagnostic criteria: Status: Acute (2) Dehydration: Status: Acute (3) Chronic kidney disease: Status: Acute (4) Acidosis: Status: Acute (5) Metabolic acidosis, normal anion gap (NAG): Status: Acute (6) Diarrhea: Status: Acute (7) Right lower lobe pneumonia: Status: Acute Additional A&P Information COVID-19 SARS with likely superimposed bacterial pneumonia High procalcitonin, patient is not febrile or septic We will check Legionella bacterial antigen, start Levaquin Currently saturating well on 2 L nasal cannula which is her home regimen No acute respiratory distress Hold off on dexamethasone and antiviral regimen for now Dehydration most likely secondary to Covid syndrome Check c diff panel, patient is denying recent use of antibiotics Clinically she looks very dry however her BNP is high, judicious fluid resuscit ation Dry mucous membranes, no lower extremity edema however patient endorsing orthopnea and PND Normal anion gap acidosis secondary to diarrhea Not septic Chronic kidney disease: No acute exacerbation Coronary disease: Continue aspirin and Plavix No acute chest pain Hypothyroidism: Continue home regimen of levothyroxine CODE STATUS: Full code, considering her age and comorbidities kindly readdress goals of care in the morning as well Cardiac diet DVT prophylaxis Heparin Attestations Medical Necessity Statement*: Covid 19 viral pneumonia with likely superimposed bacterial pneumonia, anticipating stay in the hospital course more than 2 midnights, Coding Level of Care Code Acute Plate Mounter for [facility] Diagnoses COVID-19 determined by clinical diagnostic criteria U07.1 Dehydration E86.0 Chronic kidney disease N18.9 Acidosis E87.2 Metabolic acidosis, normal anion gap (NAG) E87.2 Diarrhea R19.7 Right lower lobe pneumonia J18.9
[2020-02-23] VITALS (15 sets, daily range): BP systolic 113–147; BP diastolic 55–99; PULSE 67–84; RESP 16–30; TEMP 36.3–37.1; O2SAT 84–100
[2020-02-23] MEDS: sodium chloride 0.9% 250 ML IV (02:37)
[2020-02-23] MEDS: heparin 5,000 unit/mL INJ 1 mL 5000 UNIT SUBCUT ×3 (02:37→17:11)
[2020-02-23 05:32] LABS: Basophils % 0.5 %; Eosinophils % 0.3 %; Hemoglobin 11.3 g/dL (11.5-15.3); Lymphocytes # 1.2 10^3/uL (0.8-4.8); Lymphocytes % 14.2 %; Mean Corpuscular HGB Conc 32.3 g/dL (30.0-36.0); Mean Corpuscular Hemoglobin 28.4 pg (28.0-34.0); Mean Corpuscular Volume 87.9 fL (81-99); Mean Platelet Volume 10.7 fL (7.4-10.4); Monocytes # 0.2 10^3/uL (0.2-0.9); Monocytes % 2.4 %; Neutrophils # 7.17 10^3/uL (1.8-7.7); Neutrophils % 82.1 %; Nucleated Red Blood Cells % 0.2 %; Platelet Count 117 10^3/cmm (130-400); Red Blood Count 3.98 10^6/uL (4.1-5.3); Red Cell Distribution Width 19.2 % (12.1-15.1); White Blood Count 8.7 10^3/uL (4.0-10.0)
[2020-02-23 05:44] LABS: D Dimer 2.87 ug/mIFEU (0-0.59)
[2020-02-23] MEDS: albuterol 8 gm MDI 2 PUFF INHALATION (08:00)
[2020-02-23] MEDS: aspirin 81 mg EC Tablet PO (08:05)
[2020-02-23] MEDS: levothyroxine 25 mcg Tablet PO (08:05)
[2020-02-23] MEDS: nystatin cream 30 gm 1 APPLIC TOPICAL (08:06)
[2020-02-23] MEDS: duloxetine 30 mg Capsule PO (08:06)
[2020-02-23] MEDS: levoFLOXacin 750 mg Tablet PO (08:06)
[2020-02-23] MEDS: clopidogrel 75 mg Tablet PO (08:06)
[2020-02-23] MEDS: pantoprazole DR 40 mg Tablet PO (08:06)
[2020-02-23] MEDS: metoprolol succinate ER (24 HR) 100 mg Tablet PO (08:06)
[2020-02-23] MEDS: acetaminophen 325 mg Tablet PO (08:06)
[2020-02-23 08:42] LABS: Albumin Level 2.6 g/dL (3.5-5.2); Alkaline Phosphatase 435 IU/L (35-105); Blood Urea Nitrogen 24 mg/dL (8-23); Calcium 7.9 mg/dL (8.5-10.5); Carbon Dioxide 20 mmol/L (22-29); Chloride 106 mmol/L (98-107); Globulin 4.1 g/dL (1.3-4.6); Glucose 50 mg/dL (65-115); Osmolality Calculated 283 mOsm/kg (285-295); Sodium 136 mmol/L (136-145); Total Bilirubin 1.9 mg/dL (0.15-1.2); Total Protein 6.7 g/dL (6.6-8.7)
[2020-02-23 08:56] LABS: Alanine Aminotransferase 12 U/L (0-33); Anion Gap 14.3 (5-19); Aspartate Amino Transferase 35 U/L (0-32); Potassium 4.3 mmol/L (3.5-5.1)
--- NOTE | 2020-02-23 10:03 | PC.NURSE ---
Patient was incontinent of urine upon am assessment. Changed sheets, gown and gave patient a bed bath with bath wipes. Applied nystatin cream to shakir area and under right arm due to redness, leaking and burning per patient. Verbal orders received to switch patient to nystatin cream BID to affected areas to help absorb the moisture. Patient tolerated this well. On 2L NC with no respiratory distress at this time.
[2020-02-23] MEDS: ondansetron 4 MG Tablet PO (10:37)
--- NOTE | 2020-02-23 13:06 | P.PN_ITS ---
Subjective Subjective: Interval history: Sandra reports she just kind of aches all over. History and physical reviewed. Denies any particular shortness of breath currently. She also gave a history of significant diarrhea, but has not had loose stools since being placed in the hospital. Rapid antigen was positive on admission Medications: Reviewed: Yes Vitals/I&O/Wt Last Vital Signs Temp 97.8 F 02/23/20 11:38 Pulse 68 02/23/20 11:38 Resp 23 H 02/23/20 11:38 BP 126/55 02/23/20 11:38 Pulse Ox 95 02/23/20 11:38 02/22/20 02/23/20 02/23/20 22:59 06:59 14:59 Intake Total 1000 / 1000 Balance 1000 / 1000 Weight last 48 hrs Weight 77.111 kg Physical Exam Narrative: EXAM NARRATIVE: General exam is a white female, who appears short of breath. Cardiovascular regular rate and rhythm without murmur Lungs diminished breath sounds bilaterally, slightly coarse bilaterally Abdomen is soft with positive bowel sounds Extremities no cyanosis clubbing. Tracey is noted between skin folds and groin. Skin demonstrates many areas of different ages, scarring, and erythema consistent with picking Data : 02/23/20 04:50 02/23/20 08:06 Micro: Microbiology 02/22/20 19:50 Legionella Urinary Antigen - Final Urine,Voided A&P Assessment and plan (1) COVID-19 determined by clinical diagnostic criteria: She appears to have COVID-19 pneumonia with infiltrate on her x-ray, positive Covid test, and although requiring only 2 L her baseline oxygen amount her respiratory rate is elevated and she feels short of breath Initiate remdesivir Initiate dexamethasone Albuterol as needed Status: Acute (2) Dehydration: Resolved Status: Acute (3) Chronic kidney disease: Status: Acute (4) Acidosis: Improving Status: Acute (5) Metabolic acidosis, normal anion gap (NAG): Likely secondary to diarrhea Status: Acute (6) Diarrhea: Stool studies pending but diarrhea is improved Status: Acute (7) Right lower lobe pneumonia: Cannot exclude bacterial infection and mor quinolone has been started. Positive Covid testing, infiltrate, tachypnea will initiate treatment for COVID- 19 with remdesivir and dexamethasone Legionella antigen was negative Status: Acute Additional A&P Information Elevated BNP. Patient does not appear fluid overloaded. Check echocardiogram. Possible UTI. Continue fluoroquinolone. Await culture. Chronic kidney disease, appears stable Coronary artery disease. Continue aspirin and Plavix. Denies chest pain Hypothyroidism, continue levothyroxine Dermatitis. 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 Could consider tricyclic as an outpatient. Full code DVT prophylaxis Heparin Attestations Medical Necessity Statement*: Needs continued hospitalization for treatment of COVID-19 pneumonia with antiviral and dexamethasone. Coding Level of Care Code Acute Patrol Community Service Officer for [facility] Diagnoses COVID-19 determined by clinical diagnostic criteria U07.1 Dehydration E86.0 Chronic kidney disease N18.9 Acidosis E87.2 Metabolic acidosis, normal anion gap (NAG) E87.2 Diarrhea R19.7 Right lower lobe pneumonia J18.9
--- NOTE | 2020-02-23 13:19 | USCV_ITS ---
Sandra Talley Age: 74 Gender: F : 1945 Exam Date: 02/23/2020 15:35 Ordering Phys: Kin Cooper MD Technologist: Yanique Salazar Exam Location: [facility] [place] Indication: Elevated bnp BP: 126 / 55 HR: 67 Rhythm: Sinus Technical Quality: Fair MEASUREMENTS (Male / Female) Normal Values 2D ECHO LV Diastolic Diameter PLAX 4.0 cm 4.2 - 5.9 / 3.9 - 5.3 cm LV Systolic Diameter PLAX 2.5 cm LV Chamber Size 4.4 cm IVS Diastolic Thickness 1.7 cm 0.6 - 1.0 / 0.6 - 0.9 cm IVS Systolic Thickness 1.8 cm LVPW Diastolic Thickness 1.3 cm 0.6 - 1.0 / 0.6 - 0.9 cm LVPW Systolic Thickness 1.8 cm RV Chamber Size 3.8 cm LVOT Diameter 1.9 cm LV Ejection Fraction 2D Teich 70.3 % LV Ejection Fraction MOD 2C 58.1 % LV Ejection Fraction 2C AL 58.0 % LA Diameter 4.4 cm LA Width 3.8 cm LA Height 5.2 cm RA Width 3.8 cm RA Height 5.8 cm Aorta at Sinotubular Diameter 1.9 cm M-MODE LV Diastolic Diameter MM 5.4 cm 4.2 - 5.9 / 3.9 - 5.3 cm LV Systolic Diameter MM 3.9 cm LV Ejection Fraction MM Teich 53.2 % IVS Diastolic Thickness MM 1.6 cm 0.6 - 1.0 / 0.6 - 0.9 cm IVS Systolic Thickness MM 1.6 cm LVPW Diastolic Thickness MM 1.4 cm 0.6 - 1.0 / 0.6 - 0.9 cm LVPW Systolic Thickness MM 1.9 cm RV Diastolic Diameter MM 1.2 cm Aortic Annulus Diameter 3.5 cm LA Ao Ratio MM 1.4 MV E Point Septal Separation 0.8 cm DOPPLER AV Peak Velocity 331.3 cm/s LVOT Peak Velocity 98.0 cm/s AV Area Cont Eq vti 0.7 cm squared AV Area Cont Eq pk 0.8 cm squared MV Area PHT 5.0 cm squared Mitral E to A Ratio 0.9 MV E' Velocity 46.0 cm/s Mitral E to MV E' Ratio 15.0 Mitral E to LV E' Lateral Ratio 16.1 Mitral E to LV E' Septal Ratio 14.3 TR Peak Velocity 334.0 cm/s TR Peak Gradient 44.6 mmHg TR Mean Velocity 226.8 cm/s TR Mean Gradient 21.5 mmHg TR Velocity Time Integral 93.6 cm TV Peak E Velocity 74.0 cm/s Right Atrial Pressure 15.0 mmHg Pulmonary Artery Systolic Pressu 59.6 mmHg PV Peak Velocity 73.0 cm/s RV Acceleration Time 0.1 s RV Ejection Time 0.3 s RV AcT/ET 0.2 FINDINGS Left Ventricle Diffuse hypokinesia of the left ventricle with an ejection fraction of around 40 to 45%. Severe hypokinesia of the mid and apical septal segments.Grade II/IV diastolic dysfunction, moderately elevated filling pressures. Right Ventricle Mildly dilated right ventricle with normal ejection fraction Right Atrium Mildly increased right atrial size. Left Atrium Mildly dilated left atrium. Mitral Valve Thickened mitral valves with mild mitral annular calcification.mild mitral valve regurgitation. Aortic Valve Thickened and stenotic aortic valve. Suyk-xf-[id number] aortic valve regurgitation. Possibly severe low gradient aortic valve stenosis with a peak velocity of 3.53 m/s with a peak gradient of 50 and a mean gradient of 29 mmHg Tricuspid Valve Ubbwaqju-ih-imlwlc tricuspid valve regurgitation. Pulmonic Valve Mild pulmonary valve regurgitation. Pericardium Small pericardial effusion. Aorta CONCLUSIONS Multiple wall motion normalities with diminished left ventricular ejection fraction of 40 to 45%. Grade II/IV diastolic dysfunction, moderately elevated filling pressures. Mild biatrial enlargement Possibly severe low gradient aortic valve stenosis with a peak velocity of 3.53 m/s with a peak gradient of 50 and a mean gradient of 29 mmHg. Thickened mitral valves with mild mitral annular calcification.mild mitral valve regurgitation. Zktbrocz-qf-khhklp tricuspid valve regurgitation. Moderate pulmonary hypertension with an estimated pulmonary artery peak systolic pressure of 60 mmHg Bjtz-yi-bgernfij aortic valve regurgitation. There is no pericardial effusion. There are no intracardiac masses. No previous study is available for comparison. Dr Abdi Phan MD [facility] (Electronically Signed) Final Date: 23 February 2020 19:28 S
[2020-02-23] MEDS: dexamethasone 4 mg/mL INJ 6 MG IVP (15:50)
[2020-02-23] MEDS: nystatin powder 15 gm Btl 1 APPLIC TOPICAL (17:11)
[2020-02-24] VITALS: BP 117/74; PULSE 101; RESP 20; TEMP 37.2; O2SAT 93
[2020-02-24 01:21] VITALS: PULSE 89; RESP 26; O2SAT 96
--- NOTE | 2020-02-24 01:25 | PC.NURSE ---
Patient with sob. Reported oxygen saturation 82%. Oxygen bumped to 5l and patient placed in high fowlers with improvement of symptoms reported. Respiratory present. RT treatment given. O2 Sat now 94%. Tele applied.
[2020-02-24 04:00] VITALS: BP 134/80; PULSE 77; RESP 21; TEMP 37.2; O2SAT 90
[2020-02-24] MEDS: heparin 5,000 unit/mL INJ 1 mL 5000 UNIT SUBCUT ×2 (04:04→10:09)
[2020-02-24 04:10] LABS: Basophils % 0.2 %; Hematocrit 34.3 % (37.0-47.0); Hemoglobin 10.9 g/dL (11.5-15.3); Lymphocytes # 0.5 10^3/uL (0.8-4.8); Lymphocytes % 4.6 %; Mean Corpuscular HGB Conc 31.8 g/dL (30.0-36.0); Mean Corpuscular Hemoglobin 28.2 pg (28.0-34.0); Mean Corpuscular Volume 88.9 fL (81-99); Mean Platelet Volume 10.8 fL (7.4-10.4); Monocytes # 0.2 10^3/uL (0.2-0.9); Monocytes % 1.5 %; Neutrophils # 10.37 10^3/uL (1.8-7.7); Neutrophils % 93.4 %; Nucleated Red Blood Cells % 0 %; Platelet Count 105 10^3/cmm (130-400); Red Blood Count 3.86 10^6/uL (4.1-5.3); Red Cell Distribution Width 19.8 % (12.1-15.1); White Blood Count 11.1 10^3/uL (4.0-10.0)
[2020-02-24 04:45] LABS: Alanine Aminotransferase 16 U/L (0-33); Albumin Level 2.4 g/dL (3.5-5.2); Alkaline Phosphatase 352 IU/L (35-105); Blood Urea Nitrogen 26 mg/dL (8-23); Calcium 7.7 mg/dL (8.5-10.5); Carbon Dioxide 15 mmol/L (22-29); Chloride 109 mmol/L (98-107); Globulin 3.8 g/dL (1.3-4.6); Glucose 52 mg/dL (65-115); Osmolality Calculated 288 mOsm/kg (285-295); Sodium 138 mmol/L (136-145); Total Bilirubin 1.4 mg/dL (0.15-1.2); Total Protein 6.2 g/dL (6.6-8.7)
[2020-02-24 04:49] LABS: Anion Gap 18.7 (5-19); Aspartate Amino Transferase 42 U/L (0-32); Potassium 4.7 mmol/L (3.5-5.1)
[2020-02-24 08:00] VITALS: BP 101/64; PULSE 71; RESP 22; TEMP 36.8; O2SAT 95
[2020-02-24 08:11] VITALS: PULSE 70; RESP 18; O2SAT 94
[2020-02-24] MEDS: albuterol 8 gm MDI 2 PUFF INHALATION (08:12)
--- NOTE | 2020-02-24 09:56 | PC.CHAP ---
Pastoral Care Encounter/Spiritual Assessment Type of Contact [] Declined recruiter specialist visit [] Patient/Family/Request visit [] Outpatient visit [] Follow-up visit [] Physician referral [] Code/Alert [] Routine visit [] Staff referral [] Actively dying [] Patient sleeping [] Family support [] [] Out of room [] Palliative care [] [] Receiving care in room [] Pre-surgical visit [] Trauma [] Long length of stay [] ICU visit [x] Other: quarantined... did not enter Relational/Emotional Strength [] Patient feels connected with others/family/visitors/staff [] Distress [] Loneliness/isolation [] Abandonment Spirituality of Patient [] Person of Clair [] Attends Voodoo of their Clair [] Believes in Prayer [] Reads Bible or Quaker materials [] There are Spiritual issues to be addressed Gathering Worker Interventions [x] Prayer [] Active listening [] Non-anxious presence [] Spiritual/emotional support [] Crisis/trauma care [] Spiritual counseling [] Bereavement support [] Provided bereavement packet [] Provided Bible/devotional materials [] Provided toy/stuffed animal, coloring book to patient or family member [] Provided Communion [] Anointing/[place] [] Salvation [x] Completed spiritual assessment [] Other: Impact on Illness or Injury [] Angry [] Fearful [] Anxious [] Often cries [] Exhaustion [] Unable to work [] Unable to attend holiness [] Unable to walk/stand [] Unable to read [] Unable to drive [] Unable to eat/drink [] Unable to sleep [] Unable to be with family [] Patient intubated [] Other: Summary Time spent with patient
[2020-02-24] MEDS: FUROsemide 10 mg/mL SDV 2mL 20 MG IVP (10:07)
[2020-02-24] MEDS: pantoprazole DR 40 mg Tablet PO (10:10)
[2020-02-24] MEDS: ondansetron 4 MG Tablet PO (10:10)
[2020-02-24] MEDS: duloxetine 30 mg Capsule PO (10:10)
[2020-02-24] MEDS: aspirin 81 mg EC Tablet PO (10:10)
[2020-02-24] MEDS: clopidogrel 75 mg Tablet PO (10:11)
[2020-02-24] MEDS: metoprolol succinate ER (24 HR) 100 mg Tablet PO (10:11)
[2020-02-24] MEDS: potassium chloride ER 10 mEq Tablet 20 MEQ PO (10:12)
[2020-02-24] MEDS: levothyroxine 25 mcg Tablet PO (10:12)
[2020-02-24] MEDS: haloperidol inj 5 mg/mL INJ 1 mL IM (10:12)
[2020-02-24] MEDS: nystatin powder 15 gm Btl 1 APPLIC TOPICAL (10:13)
--- NOTE | 2020-02-24 11:00 | PC.NURSE ---
PT WAS ANXIOUS, AND RESTLESS THIS MORNING. SHE WAS TRYING TO PULL HER IV. , ORDERED BALDERAS, INSERTED 16FR. PT TOLERATED BALDERAS INSERTION FAIR. PT PROCEEDED TO PULL OUT BALDERAS, ORDER FOR 1 ON 1 SITTER OBTAINED.
--- NOTE | 2020-02-24 12:08 | P.PN_ITS ---
Subjective Subjective: Interval history: Patient Vitals/I&O/Wt Last Vital Signs Temp 98.3 F 02/24/20 08:00 Pulse 70 02/24/20 08:11 Resp 18 02/24/20 08:11 BP 101/64 02/24/20 08:00 Pulse Ox 94 02/24/20 08:11 02/23/20 02/24/20 02/24/20 22:59 06:59 14:59 Intake Total 240 / 600 200 / 800 Output Total 100 / 100 Balance 140 / 500 200 / 700 Weight last 48 hrs Weight 77.111 kg Data : 02/24/20 03:37 02/24/20 03:37 Micro: Microbiology 02/22/20 19:50 Urine Culture - Preliminary Urine,Clean Catch Gram Negative Rods 02/22/20 19:50 Legionella Urinary Antigen - Final Urine,Voided Bacterial Antigens - Final Coding Level of Care Code Acute Store Operations Specialist for [facility]
--- NOTE | 2020-02-24 12:15 | PC.NURSE ---
1 ON 1 SITTER IN ROOM WITH PT
--- NOTE | 2020-02-24 12:23 | PC.NURSE ---
Addendum entered by Zeynep Griffin RN 02/24/20 16:26: 1227 - PULSE CHECK, NO PULSE, CPR 1228 - PEA 1229 - EPI GIVEN 1231 - R HUMOROUS IO, NO PULSE -PEA, CPR 1232 - EPI GIVEN IO 1233 - 1 AMP BICARB IO, NO PULSE - PEA, CPR 1235 - NO PULSE - PEA, EPI IO, INTUBATE 1236 - 8.0 1237 - NO PULSE -PEA, CPR, IO CAME OUT 1238 - IO R TIBIA, NO PULSE - PEA, EPI GIVEN 1239 - 1 AMP BICARB 1240 - NO PULSE -PEA, CPR 1241 - OG PLACED, EPI GIVEN 1242 - NO PULSE -PEA, CPR 1244 - NO PULSE - PEA, CPR, EPI GIVEN 1245 - IV FLUIDS PRESSURED IN R IO TIBIA 1246 - PULSE 150 IRREGULAR, BP 96/72, ETT, RR 16 1251 - LEVOPHED GTT @ 4 1254 - HEADED TO VICU 1255 - PT ASHELY -PEA, NO PULSE, CPR RESUMED 1258 - 1 AMP BICARB GIVEN 1301 - EPI GIVEN 1303 - NS WIDE OPEN 1308 - SHOCK (DEFIB) @ 120 J 1309 - PULSE CHECK, NO PULSE -PEA, CPR 1310 - MOVE TO VICU Original Note: NURSE NOTIFIED BY SITTER, PT NOT BREATHING, HR DECLINING IN THE 30S. NURSE ENTERED ROOM TO FIND PT UNRESPONSIVE AND NO PULSE, NO BREATHING. THIS NURSE STARTED COMPRESSIONS AND CALLED CODE BLUE. SEE SUMMARY BELOW OF EVENTS THAT FOLLOWED; 1225 -ASHELY 36, UNRESPONSIVE, NO PULSE 122
--- NOTE | 2020-02-24 13:51 | PC.NURSE ---
patient transferred from [facility] compressions continued epi given 1313 resumed compressions 1316 epi given pulse check and patient had a pulse atropine given 1317 external pacing started; pulse lost 1318 compressions started 1321 pulse check with no pulse 1323 Coded ended per instructions from Dr Ovalle
--- NOTE | 2020-02-24 15:39 | PC.NURSE ---
Call to family Nurse Spoke with . informed that patient had clothing and glasses. stated i have covid so I can not come and get them. if the home can take them thats okay. Its not a big loss to us that she doesn't have them. notified that we would leave a patient label on them and they could come picked edge sewing machine operator later in time. states that he would like to use [facility].
--- NOTE | 2020-02-24 16:41 | PC.NURSE ---
Call to home Nurse spoke with Shreyas Barnes at [facility]. per Shreyas that home could come and get the patients body. Sending a tow truck driver now. Will need to have sign a certificate. Post mortem care provided by nurse and RT. All lines removed and dressed.
--- NOTE | 2020-02-24 18:23 | PC.NURSE ---
1748 home here to pickle pumper corpse. Paper work signed. Family released body over telephone. Dr. Ovalle in unit and notified.
--- NOTE | 2020-02-24 22:56 | PM.DDS ---
Discharge Providers DDS Date of Admission: 02/23/20 00:00 Date Summary Completed: 02/24/20 Attending Provider at Admission: Gutierrez Diaz MD Time of : 13:23 Attending Provider at Discharge: Lisandro Ovalle MD Primary Care Provider: UM[facility]oses [facility] Diagnoses (1) Heart failure, unspecified: (2) COVID-19 determined by clinical diagnostic criteria: (3) Right lower lobe pneumonia: (4) Dehydration: (5) Chronic kidney disease: (6) Acidosis: (7) Metabolic acidosis, normal anion gap (NAG): (8) Diarrhea: Reason for Visit Reason for Visit: D/N/V, COUGH Summary Date and Time of : Date of : 02/24/20 Time of : :23 Summary: Summary: 74 Y O F with PMH of coronary disease, GERD, hypothyroidism, renal insufficiency, spinal abscess history, iliopsoas bursitis, deconditioning, presented with chief complaint of diarrhea, generalized weakness and nonproductive cough. Patient is stating that her symptoms started a week ago with diarrhea, she has been having nonproductive cough as well as progressively worseing shortness of breath with orthopnea and PND. She was being managed for Ac hypoxic r/f 2/2 CVID PNA as well decompensated HFrEF.She was on COVID Protocol ( Remdesevir and Dexamethsone ) She was also levoflxacin for possible superimposed bacterial/atpical PNA.2D ECho done during his admission showed Multiple wall motion normalities with diminished left ventricular ejection fraction of 40 to 45%. Grade II/IV diastolic dysfunction, moderately elevated filling pressures.On 02/23 during the morning rounds she was complaining of worsening SOB and not able to lie flat. Chest ascultation was showed b/l diffuse crackles in both lung larson.Nurse was asked to give lasix 40 mg I.V as well as place a haywood catheter.Plan was to reevlaute her post lasix.Rapid response was called at 12;23 pm which was converted to code blue as no pulse was felt by nurse on arrival.Code last for 60 mins during which multiple rounds of epi was given along with 2 amps of bicarbonate as well on shock for coarse v.fib.ROSC was acheived 3 times during the entire code but each time it lasted for very brief period of time.She was also intubated during the code.Code Jair was called off at 1:23 pm.No pulse was found,no heart sounds were ascultated.Pupils were dilated and fixed.Rhythym was asystole on montor.Family was notified. Additional Data: Advance directives?: No Discharge Plan Discharge Patient Disposition: Condition: Stable Discharge Date/Time: 02/24/20 17:30 Probable Cause of Probable cause of : Cardiac arrest DS Attestations Time Spent in /Discharge Care*: greater than 30 min Quality - AMI: AMI present?: No Quality - Stroke: CVA present?: No Quality - VTE: VTE present?: No Coding Level of Care Code Acute Driver'S License Reviewing Officer for [employer] Diagnoses Heart failure, unspecified I50.9 COVID-19 determined by clinical diagnostic criteria U07.1 Right lower lobe pneumonia J18.9 Dehydration E86.0 Chronic kidney disease N18.9 Acidosis E87.2 Metabolic acidosis, normal anion gap (NAG) E87.2 Diarrhea R19.7
--- NOTE | 2020-02-24 23:33 | PM.ACPR ---
Acute Procedures Intubation: Time out performed: No Sedative: none Laryngoscope: fiber optic video scope ET tube size: 8 ET tube uncuffed: Yes Tube secured depth (cm): 23 Tube secured location: lips Tube placement confirmation: visualized tube passing through cords, equal breath sounds bilaterally and color change noted Patient tolerated procedure: well
== END 2020-02-24 17:30 | disposition expired | DRG 177 ==
LOC: ER 19:28 → MEDSURG 02-23 03:23 → ICU 02-24 14:37
PROVIDERS: Internal Medicine; Admitting Provider Internal Medicine; Emergency Provider Emergency Medicine; PCP Nurse Practitioner Family; Visit Provider Internal Medicine
DX: U07.1 COVID-19 (principal); J12.89 Other viral pneumonia; I50.23 Acute on chronic systolic (congestive) heart failure; E87.2 Acidosis; N39.0 Urinary tract infection, site not specified; I25.10 Atherosclerotic heart disease of native coronary artery without angina pectoris; Z95.5 Presence of coronary angioplasty implant and graft; K21.9 Gastro-esophageal reflux disease without esophagitis; E03.9 Hypothyroidism, unspecified; E86.0 Dehydration; Z99.81 Dependence on supplemental oxygen; F32.9 Major depressive disorder, single episode, unspecified; M54.17 Radiculopathy, lumbosacral region; D50.9 Iron deficiency anemia, unspecified; Z96.641 Presence of right artificial hip joint; N18.9 Chronic kidney disease, unspecified; L30.9 Dermatitis, unspecified; R09.02 Hypoxemia; I46.9 Cardiac arrest, cause unspecified
CPT/HCPCS: 12345; 36415; 36600; 51702; 71045; 80053; 81001; 82803; 83605; 83690; 83880; 84145; 85025; 85378; 86140; 86403; 87077; 87086; 87186; 87426; 87449; 93306; 94640; 96372; 96375; 97161; 99284; J0171; J1100; J1630; J1644; J1940; J3535; J7030; J7050; Q0162